=== PATIENT | female | born 1950 | race Caucasian/White ===

== ENCOUNTER 2016-11-24 15:14 | Outpatient (CLI) | payer MEDICARE, OTHER ==
[2015-01-21 09:32] VITALS: BP 108/73
== END 2016-11-24 15:15 ==
LOC: LABRHC 15:14
PROVIDERS: ATTEND Physician Assistant
DX: J02.9 Acute pharyngitis, unspecified (principal)
CPT/HCPCS: 87070

== ENCOUNTER → 2017-06-08 | Outpatient (CLI) | payer MEDICARE, OTHER ==
[2015-01-21 09:32] VITALS: BP 108/73
[2017-06-08 09:35] LABS: eGFR (African) > 60; eGFR (Non-African) > 60
== END ==
LOC: LAB 08:24
PROVIDERS: ATTEND Internal Medicine
DX: E13.8 Other specified diabetes mellitus with unspecified complications (principal); E07.9 Disorder of thyroid, unspecified
CPT/HCPCS: 36415; 80053; 80061; 82043; 83036; 84443

== ENCOUNTER 2017-12-05 09:34 | Outpatient (CLI) | payer MEDICARE, OTHER ==
[2015-01-21 09:32] VITALS: BP 108/73
== END 2017-12-05 09:35 ==
LOC: RAD 09:34
PROVIDERS: ATTEND Physician Assistant
DX: Z78.0 Asymptomatic menopausal state (principal)
CPT/HCPCS: 77080

== ENCOUNTER 2018-01-08 03:22 | Emergency (ER) | payer MEDICARE, OTHER ==
[2018-01-08 03:50] LABS: BASOPHILS % 0.8 (0.0-1.5); EOSINOPHILS % 2.8 % (0.0-6.8); MEAN CORPUSCULAR HEMOGLOBIN 32.4 pg (28.0-34.0); MEAN CORPUSCULAR VOLUME 94.1 fl (80.0-100.0); MONOCYTES % 4.1 % (0.0-11.0); NEUTROPHILS # 5.1 # k/uL (1.4-7.7)
[2018-01-08 04:06] LABS: eGFR (African) > 60; eGFR (Non-African) > 60
[2018-01-08] MEDS: traMADol HCL 50 MG TABLET ONE (04:33)
[2018-01-08] MEDS: traMADol HCL 50 MG TABLET PO ONE (04:33)
--- NOTE | 2018-01-08 04:40 | ED Physician Documentation ---
General Adult - HISTORIAN Historian: patient - HPI Stated Complaint: Toe Pain Chief Complaint: General Adult Onset: hours Timing: still present Severity: moderate Further Comments: yes (Pt is a 67 yo female with intermittent shooting pain in her L great toe. Pt says the pain woke her from sleep. Pt has had back surgery with relocation of the femoral nerve, she says, and has since had occasional cramping of her L foot. Tonight is the first time she's had shooting pain in her toe. Pt had L leg numbness after her back surgery, most of which has resolved except for some residual numbness of her L foot.) - ROS CONST: no problems EYES/ENT: none CVS/RESP: none GI/: none MS/SKIN/LYMPH: other (L great toe pain) NEURO/PSYCH: numbness (chronic L foot numbness s/p back surgery; pain in L great toe ? neurologic) - PAST HX Past History: other (DM, HTN) Surgeries/Procedures: cholecystectomy, hysterectomy, other (appendectomy, back surgery) Allergies/Adverse Reactions: Allergies Allergy/AdvReac Type Severity Reaction Status Date / Time Penicillins Allergy Verified 01/21/15 09:23 Home Medications: Ambulatory Orders Medication Instructions Recorded Multivitamin [Multi-Vitamin Daily] 1 each PO DAILY u2 11/24/16 Metformin HCl [Glucophage] 500 mg PO BID 01/08/18 - SOCIAL HX Smoking History: non-smoker Alcohol Use: occasionally - FAMILY HX Family History: No - VITAL SIGNS Vital Signs: Vital Signs Temp Pulse Resp BP Pulse Ox 98.1 F 82 18 174/91 99 01/08/18 03:25 01/08/18 03:25 01/08/18 03:25 01/08/18 03:25 01/08/18 03:25 - REVIEWED ASSESSMENTS Nursing Assessment Reviewed: Yes Vitals Reviewed: Yes Progress - Progress Progress: no gouty inflammation of L great toe, but uric acid is elevated, 7.1 gout vs. neurologic pain. Pain is intermittent, shooting. Pt has occasional spontaneous cramping of L foot. ? similar to restless leg. Will give Tramadol 50 mg, 1 tab for home. (Pt is driving.) Rx Colchicine 0.6 mg. Take 2 tablets by mouth; take 1 additional tablet one hour later. Rx Tramadol 50 mg. Take one every 6 hrs as needed. Disp: 20 f/u pcp ED Results Lab/Radiology - Lab Results Lab Results: Lab Results 01/08/18 01/08/18 01/08/18 03:46 03:46 03:46 WBC 8.50 K/ul K/ul (4.00-12.00) RBC 4.46 M/ul M/ul (3.90-5.20) Hgb 14.4 g/dL g/dL (12.0-16.0) Hct 42.0 % % (34.5-46.5) MCV 94.1 fl fl (80.0-100.0) MCH 32.4 pg pg (28.0-34.0) MCHC 34.4 g/dL g/dL (30.0-36.0) RDW 13.4 % % (11.3-14.3) Plt Count 310 K/mm3 K/mm3 (130-400) Neut % (Auto) 59.7 % % (39.0-79.0) Lymph % (Auto) 30.8 % % (16.0-50.0) [place] % (Auto) 4.1 % % (0.0-11.0) Eos % (Auto) 2.8 % % (0.0-6.8) Baso % (Auto) 0.8 (0.0-1.5) Neut # (Auto) 5.1 # k/uL # k/uL (1.4-7.7) Lymph # (Auto) 2.6 # k/uL # k/uL (0.6-4.0) [place] # (Auto) 0.4 # k/uL # k/uL (0.0-0.9) Eos # (Auto) 0.2 # k/uL # k/uL (0.0-0.6) Baso # (Auto) 0.1 # k/uL # k/uL (0.0-0.5) Reactive Lymphs % 1.9 % % (0.0-5.0) Reactive Lymphs # 0.2 # k/uL # k/uL (0.0-0.8) Sodium 138 mmol/L mmol/L (136-145) Potassium 3.7 mmol/L mmol/L (3.5-5.1) Chloride 98 mmol/L mmol/L (98-107) Carbon Dioxide 28 mmol/L mmol/L (22-30) BUN 15 mg/dL mg/dL (7-17) Creatinine 0.70 mg/dL mg/dL (0.52-1.04) Estimated Creat Clear 146 Est GFR ( Amer) > 60 (60 - ) Est GFR (Non-Af Amer) > 60 (60 - ) Glucose 130 mg/dL H mg/dL (74-106) Uric Acid 7.1 mg/dL H mg/dL (2.5-6.2) Calcium 10.6 mg/dL H mg/dL (8.4-10.2) Total Bilirubin 0.8 mg/dL mg/dL (0.2-1.3) AST 39 U/L U/L (15-46) ALT 52 U/L U/L (13-69) Alkaline Phosphatase 124 U/L U/L (38-126) Total Protein 8.3 g/dL H g/dL (6.3-8.2) Albumin 4.7 g/dL g/dL (3.5-5.0) - Orders Orders: ED Orders Category Date Time Status CBC/PLATELET/DIFF Routine Lab 01/08/18 03:46 Completed CMP Routine Lab 01/08/18 03:46 Completed URIC ACID Stat Lab 01/08/18 03:46 Completed traMADol HCL [Ultram] Med 01/08/18 04:31 Discontinued 50 mg .ROUTE .STK-MED ONE traMADol HCL [Ultram] Med 01/08/18 04:26 Once 50 mg PO NOW ONE General Adult Physical Exam - PHYSICAL EXAM GENERAL APPEARANCE: moderate distress (intermittent) NECK: normal inspection, supple RESPIRATORY: no resp distress, chest non-tender, breath sounds normal CVS: reg rate & rhythm, heart sounds normal BACK: normal inspection, no CVA tenderness SKIN: warm/dry, normal color EXTREMITIES: non-tender, normal range of motion, no evidence of injury, other ( no gouty inflammation of L great toe) NEURO: oriented X3, motor nml, other (residual numbness L foot s/p back surgery) Discharge Clincal Impression: L great toe pain, elevated uric acid Referrals: Maria Vidal PA [Primary Care Provider] - Condition: Good Decision to Admit: NO Decision Time: 04:40
[2018-01-08 04:50] VITALS: BP 158/68
== END 2018-01-08 04:48 | disposition home or self-care (01) ==
LOC: ED 03:22
DX: M79.675 Pain in left toe(s) (principal); R79.89 Other specified abnormal findings of blood chemistry
CPT/HCPCS: 80053; 84550; 85025; 99283

== ENCOUNTER 2018-05-28 08:22 | Outpatient (CLI) | payer MEDICARE, OTHER ==
[2018-05-28 09:40] LABS: eGFR (Non-African) > 60
== END 2018-05-28 08:23 ==
LOC: LAB 08:22
PROVIDERS: ATTEND Physician Assistant
DX: I10 Essential (primary) hypertension (principal); E11.9 Type 2 diabetes mellitus without complications; E78.5 Hyperlipidemia, unspecified
CPT/HCPCS: 36415; 80053; 80061; 83036